=== PATIENT | male | born 1995 | race African-American/Black ===

== ENCOUNTER 2016-12-17 09:48 | Emergency (ER) | payer BC ==
[~2016-12-17] VITALS: Ht 177.8 cm; Wt 74.8 kg
[2016-12-17 11:19] LABS: OBC FLU VALID
--- NOTE | 2016-12-17 11:21 | PHYS DOC ---
Past Medical History Past Medical History: No Pertinent History Past Surgical History: No Surgical History Alcohol Use: None Drug Use: None Adult General Chief Complaint Chief Complaint: SHORTNESS OF BREATH HPI HPI Patient is a 21 year old male presents the emergency Department today with complaint of multiple symptoms involving cough, congestion, sore throat, fevers and body aches and isolated episodes of vomiting and diarrhea. Patient states he symptoms began 4 days ago. He denies any known direct contact with anyone with strep throat or influenza. He denies any history of chronic medical problems. He denies antibiotic use, hospitalization or foreign travel within the past 90 days. Review of Systems Review of Systems Constitutional: Denies fever or chills [] Eyes: Denies change in visual acuity, redness, or eye pain [] HENT: Denies nasal congestion or sore throat [] Respiratory: Denies cough or shortness of breath [] Cardiovascular: No additional information not addressed in HPI [] GI: Denies abdominal pain, nausea, vomiting, bloody stools or diarrhea [] : Denies dysuria or hematuria [] Musculoskeletal: Denies back pain or joint pain [] Integument: Denies rash or skin lesions [] Neurologic: Denies headache, focal weakness or sensory changes [] Endocrine: Denies polyuria or polydipsia [] Allergies Allergies Allergies Coded Allergies Type Severity Reaction Last Updated Verified No Known Drug Allergies 07/06/14 No Physical Exam Physical Exam Constitutional: Well developed, well nourished, no acute distress, non-toxic appearance. Patient appears ill but nontoxic. HENT: Normocephalic, atraumatic, bilateral external ears normal, oropharynx moist, no oral exudates, nose normal. There is no hot potato speech or trismus. Posterior oropharynx is with only mild erythema and cobblestoning. There are no tonsillar plaques, peritonsillar swelling or uvular deviation. Eyes: PERRLA, EOMI, conjunctiva normal, no discharge. [] Neck: Normal range of motion, no tenderness, supple, no stridor. There is no meningismus. There is bilateral anterior and posterior cervical adenopathy. Cardiovascular:Heart rate regular rhythm, no murmur [] Lungs & Thorax: Bilateral breath sounds clear to auscultation Abdomen: Bowel sounds normal, soft, no tenderness, no masses, no pulsatile masses. Skin: Warm, dry, no erythema, no rash. [] Back: No tenderness, no CVA tenderness. [] Extremities: No tenderness, no cyanosis, no clubbing, ROM intact, no edema. [] Neurologic: Alert and oriented X 3, normal motor function, normal sensory function, no focal deficits noted. Psychologic: Affect normal, judgement normal, mood normal. [] Current Patient Data Vital Signs Vital Signs Date Time Temp Pulse Resp B/P Pulse Ox O2 Delivery O2 Flow Rate FiO2 12/17/16 11:45 80 16 121/71 97 Room Air 12/17/16 09:56 99.1 99.1 Lab Values Laboratory Tests Test 12/17/16 10:38 12/17/16 10:40 Influenza Type A Antigen Negative (NEGATIVE) Influenza Type B Antigen Negative (NEGATIVE) Group A Streptococcus Rapid Negative (NEGATIVE) EKG EKG [] Radiology/Procedures Radiology/Procedures [] Course & Med Decision Making Course & Med Decision Making Patient's rapid strep and influenza here today are negative. Patient does demonstrate a viral syndrome but is otherwise healthy. I discussed this test results with him. He verbalizes understanding of this. I will write patient a work note for today and tomorrow so that he can convalesce at home and hope to speed his recovery from this viral illness. Dragon Disclaimer Dragon Disclaimer This electronic medical record was generated, in whole or in part, using a voice recognition dictation system. Departure Departure Impression: Primary Impression: Viral syndrome Disposition: HOME, SELF-CARE Condition: GOOD Referrals: NO PCP (PCP) Patient Instructions: Viral Syndrome Additional Instructions: 1. Take the medication as prescribed. 2. Review the discharge instructions provided for self-care at home and reasons to return to the emergency department. 3. Use the pamphlet provided to you for assistance in finding a primary care doctor in which to follow-up next week if you are not better and to address any other medical concerns that you have. Scripts D-Methorphan Hb/Prometh Hcl (Promethazine-Dm Syrup)118 Ml Syrup5 Ml PO PRN Q6HRS cough and nausea #120 ML Prov:GREGORY MONTOYA 12/17/16 GREGORY MONTOYA Dec 17, 2016 11:21
[2016-12-17] MEDS ORDERED: D-ME118S2 PO (11:41)
[2016-12-17 11:45] VITALS: BP 121/71
[2016-12-17 12:25] LABS: NEGATIVE OBC STREP NEG; POSITIVE OBC STREP POS
== END 2016-12-17 11:51 | disposition home or self-care (01) ==
LOC: ER 09:48
DX: B34.9 Viral infection, unspecified (principal); R11.10 Vomiting, unspecified
CPT/HCPCS: 87070; 87804; 87880; 99284

== ENCOUNTER 2017-04-12 09:04 | Emergency (ER) | payer BC ==
[~2017-04-12 09:04] MED LIST: D-ME118S2 PO
[2017-04-12 09:23] VITALS: BP 144/101
[2017-04-12] MEDS ORDERED: IBUPROFEN 800 MG TABLET. PO ONE (10:00)
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
[2017-04-12] MEDS ORDERED: CYCL10TA2 PO (10:55)
[2017-04-12] MEDS ORDERED: HYDR-971 PO (10:55)
== END 2017-04-12 11:08 | disposition home or self-care (01) ==
LOC: ER 09:41
DX: S22.31XA Fracture of one rib, right side, initial encounter for closed fracture (principal); M54.5 Low back pain; M25.551 Pain in right hip; V43.42XA Person boarding or alighting a car injured in collision with other type car, initial encounter; Y93.89 Activity, other specified; Y99.8 Other external cause status; Y92.488 Other paved roadways as the place of occurrence of the external cause
CPT/HCPCS: 71101; 73502; 99284